=== PATIENT | male | born 1950 | race Two or more races ===

== ENCOUNTER → 2019-03-06 | Outpatient (CLI) | payer MEDICARE ==
--- NOTE | 2019-03-06 10:51 | XR ---
EXAMINATION TYPE: XR chest 2V DATE OF EXAM: 03/06/2019 COMPARISON: NONE HISTORY: Shortness of breath TECHNIQUE: Frontal and lateral views of the chest are obtained. FINDINGS: Scattered senescent parenchymal changes noted. Hyperinflation compatible with COPD. No evidence for infiltrate. No evidence for atelectasis. Heart size is stable. Mediastinal structures are stable and grossly unremarkable. No evidence for hilar prominence. Degenerative changes dorsal spine. IMPRESSION: 1. No evidence for acute pulmonary disease.
[2019-03-06 12:10] LABS: Appearance,Urine Clear (Clear); Bilirubin,Urine Negative (Negative); Blood,Urine Negative (Negative); Color,Urine Light Yellow; Glucose,Urine (UA) Negative (Negative); Ketones,Urine Negative (Negative); Leukocyte Esterase,Urine Negative (Negative); Nitrite,Urine Negative (Negative); PH, Urine 6.5 (5.0-8.0); Protein,Urine Negative (Negative); Urobilinogen,Urine <2.0 mg/dL (<2.0)
[2019-03-06 12:11] LABS: Basophils # (A) 0.1 k/uL (0-0.2); Basophils % (A) 1 %; Eosinophils # (A) 0.1 k/uL (0-0.7); Eosinophils % (A) 2 %; HCT 46.1 % (39.0-53.0); HGB 15.5 gm/dL (13.0-17.5); Lymphocytes # (A) 2.1 k/uL (1.0-4.8); Lymphocytes % (A) 26 %; MCH 31.2 pg (25.0-35.0); MCHC 33.7 g/dL (31.0-37.0); MCV 92.7 fL (80.0-100.0); Mean Platelet Volume 6.6; Monocytes # (A) 0.4 k/uL (0-1.0); Monocytes % (A) 5 %; Neutrophils # (A) 5.3 k/uL (1.3-7.7); Neutrophils % (A) 65 %; Platelet Count 155 k/uL (150-450); RBC 4.97 m/uL (4.30-5.90); RDW 12.6 % (11.5-15.5); WBC 8.1 k/uL (3.8-10.6)
[2019-03-06 12:19] LABS: Calcium 9.7 mg/dL (8.4-10.2); Potassium 4.9 mmol/L (3.5-5.1)
[2019-03-06 12:21] LABS: INR 0.9 (<1.2); Partial Thromboplastin Time 25.9 sec (22.0-30.0); Prothrombin Time 10.2 sec (9.0-12.0)
== END | disposition home or self-care (01) ==
LOC: RADXRMAIN 10:31
PROVIDERS: ATTEND Orthopaedic Surgery Orthopaedic Surgery of the Spine
DX: M48.00 Spinal stenosis, site unspecified (principal); Z01.812 Encounter for preprocedural laboratory examination; Z01.818 Encounter for other preprocedural examination; Z79.01 Long term (current) use of anticoagulants
CPT/HCPCS: 36415; 71046; 80048; 81003; 85025; 85610; 85730; 93005

== ENCOUNTER 2019-03-15 06:39 | Day surgery (SDC) | payer MEDICARE ==
[~2019-03-15 06:39] MED LIST: BACITRACIN 50,000 UNIT, POLYMYXIN B 500,000 UNIT in SODIUM CHLORIDE 0.9% IRRIGATIO 1,00... IRRIGATION ONE
[2019-03-15] MEDS ORDERED: HYDROmorphone 0.5 MG/0.5 ML SYRINGE IVP PRN ×2 (07:06→11:15)
[2019-03-15] MEDS ORDERED: ONDANSETRON 4 MG/2 ML VIAL IVP ONE (07:06)
[2019-03-15] MEDS ORDERED: LIDOCAINE 1% 20 ML VIAL (10MG/ML) FOR IV START INTRADERMA PRN (07:06)
[2019-03-15] MEDS ORDERED: DEXAMETHASONE SOD PHOSPHATE 10 MG/ML 1 ML VIAL IV ONE (07:06)
[2019-03-15] MEDS ORDERED: SCOPOLAMINE 1.5MG/72HR PATCH TRANSDERM ONE (07:06)
[2019-03-15] MEDS ORDERED: MIDAZOLAM 2 MG/2 ML VIAL IV PRN (07:06)
[2019-03-15] MEDS: LACTATED RINGERS 1,000 ML IV SCH ×2 (07:48→23:11)
[2019-03-15] MEDS ORDERED: fentaNYL (PF) 50 MCG/ML 2 ML AMP ONE (07:59)
[2019-03-15] MEDS ORDERED: ePHEDrine SULFATE/0.9% NACL/PF 50 MG/5 ML SYRINGE IV ONE (07:59)
[2019-03-15] MEDS ORDERED: PHENYLEPHRINE-0.9% NACL SYG 1 MG/10 ML SYRINGE ONE (07:59)
[2019-03-15] MEDS ORDERED: MIDAZOLAM 2 MG/2 ML VIAL ONE (07:59)
[2019-03-15] MEDS ORDERED: ROCURONIUM BROMIDE 10 MG/ML 10 ML VIAL IV ONE (07:59)
[2019-03-15] MEDS ORDERED: SUCCINYLCHOLINE CHLORIDE 100 MG/5 ML SYR IV ONE (07:59)
[2019-03-15] MEDS ORDERED: LIDOCAINE 1% INJ 10MG/ML (20 ML MDV) ONE (07:59)
[2019-03-15] MEDS ORDERED: GLYCOPYRROLATE 0.2 MG/ML 2 ML VIAL ONE (07:59)
[2019-03-15] MEDS ORDERED: PROPOFOL 10 MG/ML 20 ML VIAL IV ONE (07:59)
[2019-03-15] MEDS ORDERED: DEXAMETHASONE SOD PHOS (MDV) 100 MG/10 ML VIAL ONE (07:59)
[2019-03-15] MEDS ORDERED: GELATIN SPONGE,ABSORB (SMALL) 1 EACH SPONGE TOPICAL ONE (08:00)
[2019-03-15] MEDS ORDERED: LIDOCAINE 0.5%-EPI 1:200,000 50 ML VIAL SQ ONE (08:00)
[2019-03-15] MEDS ORDERED: THROMBIN (BOVINE) 5,000 UNIT VIAL TOPICAL ONE (08:00)
--- NOTE | 2019-03-15 09:37 | XR ---
EXAMINATION TYPE: XR cervical spine 1V DATE OF EXAM: 03/15/2019 COMPARISON: NONE HISTORY: Needle placement TECHNIQUE: One view submitted FINDINGS: Crosstable lateral demonstrates hypertrophic and degenerative change of the vertebral colum n with posterior spondylosis. Surgical instrument seen overlying the disc space of C4-C5. Endotrachea l tube noted. IMPRESSION: Intraoperative localization
[2019-03-15] MEDS ORDERED: HYDROcodone/APAP 5-325MG 1 EACH TAB PO PRN (11:15)
[2019-03-15] MEDS ORDERED: ONDANSETRON 4 MG/2 ML VIAL IVP PRN (11:15)
[2019-03-15] MEDS ORDERED: BENZOCAINE/MENTHOL LOZENG 1 EACH LOZENGE MUCOUS MEM PRN (11:15)
--- NOTE | 2019-03-15 11:27 | P.OP ---
Date of Procedure: 03/15/19 Preoperative Diagnosis: Severe cervical stenosis, cervical myelopathy, degenerative disc disease, herniated nucleus pulposis C3 4 C4 5 C5 6 and C6 7, facet arthrosis, upper extremity weakness, gait abnormality, cervical radiculopathy Postoperative Diagnosis: Severe cervical stenosis, cervical myelopathy, degenerative disc disease, herniated nucleus pulposis C3 4 C4 5 C5 6 and C6 7, facet arthrosis, upper extremity weakness, gait abnormality, cervical radiculopathy Anesthesia: GETA Pathology: none sent Condition: stable Disposition: PACU Description of Procedure: BRIEF OPERATIVE NOTE Preoperative Diagnosis:Severe cervical stenosis, cervical myelopathy, degenerative disc disease, herniated nucleus pulposis C3 4 C4 5 C5 6 and C6 7, facet arthrosis, upper extremity weakness, gait abnormality, cervical radiculopathy Postoperative Diagnosis:Severe cervical stenosis, cervical myelopathy, degenerative disc disease, herniated nucleus pulposis C3 4 C4 5 C5 6 and C6 7, facet arthrosis, upper extremity weakness, gait abnormality, cervical radiculopathy Procedure: Anterior cervical decompression with discectomy and fusion C3 4 C4 5 C5 6 and C6 7 Placement of interbody graft C3 4 C4 5 C5 6 and C6 7 Application of anterior cervical plate C3 4 5 6 and 7 Surgeon: Dr. Banegas Adjunct Physics Instructor: Isael Pinzon is present throughout the entire the case persistence during positioning, dissection, exposure, visualization, and all crucial elements of the case as well as closure. Anesthesia: General anesthesia Estimated blood loss: Approximately 200 mL Complications: None apparent Components implanted: K2M [place] anterior cervical plate system with screws and Vikos interbody allograft bone graft with 1 mL of DBX bone putty Disposition: To recovery room in good stable condition. OPERATIVE INDICATIONS The patient has had long-standing issues in their neck and upper extremities. He is developing worsening symptoms at his upper extremities and new symptoms into his legs were was having difficulty with his ambulation and his balance. He been having worsening of his strength his upper extremities as well as problems with his dexterity worse on the right than the left. His found have severe cervical stenosis with evidence of cervical myelopathy. He had severe stenosis at C3 4 C4 5 C5 6 and C6 7 all which correlated with his neck and upper extremity symptoms as well as his symptoms myelopathy. He had been through some conservative treatment of the past but was not having any benefit despite aggressive conservative care. The patient has been through conservative treatment. We discussed various treatment options including surgery, and the patient wishes to proceed with surgery We discussed the risk, patient's alternatives and benefits of surgery including but not limited to, risk of bleeding risk of infection, risk of need for further surgery, risk of decreased, loss of motion, muscle function, malunion nonunion, hardware failure, nerve damage, paralysis, heart attack, and . OPERATIVE SUMMARY After discussing all the risks, patient alternatives and benefits at length, the patient elected to proceed with surgical intervention, signed informed consent, and presented for their procedure. The patient was seen and examined in the preoperative holding area and the surgical site was marked. The patient was given antibiotics and brought to the operating room. The patient was positioned on the operating room table in a supine position being careful to pad any bony prominences and pressure points. The patient was sedated and intubated by anesthesia in standard fashion. Once the airway and C- spine were stabilized the patient's arms were padded and tucked at her side, with her shoulders gently taped. The head was placed in a donut pad with the neck in good neutral alignment and position. We were careful to maintain the patient's cervical spine and good neutral alignment and position throughout. The patient was prepped and draped in a normal standard fashion. An appropriate timeout and keystone protocol performed. We were able to proceed with the surgery. The local wound area was infiltrated with local anesthetic. An incision was made longitudinally approximately 3 cm over the appropriate levels from C3 to C7. Dissection was taken down subcutaneously to the level of the platysma which was split in line with its fibers. Dissection was taken with a carotid approach, with the trachea and esophagus medial and the carotid sheath laterally. We dissected down to the anterior surface of the vertebral bodies. Intraoperative x-ray was taken which showed a marker at the appropriate level of C45. With the appropriate level positively confirmed, we were able to proceed with discectomy at the appropriate levels. I started at C3 4 and then C4 5 and then at C5 6 and then at C6 7. All of the operative levels were exposed appropriately. The patient had all their twitches back, and there was no evidence of recurrent laryngeal issue. The wound was copiously irrigated and suctioned dry as had been done periodically throughout the case. At the appropriate level/levels starting cephalad and then moving caudad, I established an annulotomy with an 11 blade scalpel. A discectomy was performed with a combination of pituitary rongeurs, curettes, a high-speed bur, and Kerrison rongeurs. The posterior longitudinal ligament was taken down as were any posterior osteophytes. Note was made of severe disc degeneration as well disc protrusion and herniation and thickening of the posterior longitudinal ligament posterior osteophytes. These were all taken down through the course of the decompression and discectomy. This gave good central and bilateral foraminal decompression. There is no evidence of any dural tear or leak. I had to take down a portion of the bone at each level was able to maintain stability with some of the vertebral body. The endplates were prepared with a high-speed bur. With the endplates in good parallel position, I was able to size for the appropriate size interbody graft. The wound was irrigated and suctioned dry the graft was prepared and malleted into position. It had good alignment and position with the anterior surface flush with the anterior surface of the vertebral bodies. This was done similarly the appropriate levels first at C3 4 and then C4 5 and C5 6 and then C6 7. With the grafts intact, I was able to measure and contour and appropriate sized plate. The plate was positioned at the midline over the appropriate levels from C3 to C7. Screw holes were established with a hand drill and drill guide. Screws were placed in good alignment and position with excellent bony purchase. They were seated under the locking device. The construct was checked and found to be stable. Intraoperative x-ray was taken which showed good alignment and position of the implants at the appropriate levels from C3 to C7. There was no evidence of any dural tear or leak. Good hemostasis was maintained. The wound was copiously irrigated and suctioned dry as had been done periodically throughout the case. The platysma was closed with absorbable suture. The subcutaneous tissue was closed. The subcuticular tissue was closed with absorbable suture. The wound was cleaned and dried and dressed appropriately. A soft cervical collar was placed appropriately. The patient was woken up by anesthesia, extubated, transferred back gently to their hospital bed and brought to the recovery room in good stable condition. The patient will be admitted to the hospital for appropriate postoperative care, medical management and monitoring. We will continue to follow them closely about the postoperative course.
[2019-03-15] MEDS: SODIUM CHLORIDE 0.9% 1,000 ML IV SCH ×2 (14:57→23:05)
[2019-03-15 15:10] VITALS: BMI 24.1
[2019-03-15] MEDS: ACETAMINOPHEN TAB 325 MG TAB PO PRN ×2 (17:23→23:08)
[2019-03-15] MEDS: SYMBICORT 80-4.5 MCG INHALER INHALATION SCH (19:51)
[2019-03-15] MEDS ORDERED: TAMSULOSIN 0.4 MG CAP.ER.24H PO SCH (21:00)
[2019-03-16] MEDS: ACETAMINOPHEN TAB 325 MG TAB PO PRN (05:31)
[2019-03-16 06:48] VITALS: BP 126/86; PULSE 96; RESP 17; TEMP 98
[2019-03-16] MEDS: SYMBICORT 80-4.5 MCG INHALER INHALATION SCH (07:51)
--- NOTE | 2019-03-16 08:34 | P.DS ---
Providers Date of admission: 03/15/19 Attending physician: Vel Banegas Primary care physician: [facility] Course: The patient presented on the day of admission as per their operative note. He had severe cervical stenosis with disc herniation and cervical myelopathy at multiple levels. He does have a history of coronary artery disease as well as hypertension and dyslipidemia for which he has treatment. The patient underwent anterior cervical decompression with discectomy and fusion at C3 4 C4 5 C5 6 and C6 7 for his stenosis with myelopathy and radiculopathy and upper extremity weakness. He feels his extremities have made improvement since his surgery. He thinks that he may be having some improved sensation at his upper extremity is already since his surgery. He denies any nausea or vomiting. He is tolerating his soft diet. His pain is well-controlled. He is not having any trouble breathing. Physical Exam The incision site is clean dry and intact. There is no erythema no drainage. There is no purulence no evidence of infection. His neck is soft and supple. There is no significant swelling. There is no erythema or drainage. Abdomen soft and nontender. Chest has good excursion with deep inspiration and expiration. The patient has active and passive range of motion intact at the upper and lower extremities. There is no acute change in neurologic status. He has good motion throughout his extremities but has some diffuse weakness at his extremities which is unchanged from prior to surgery Hospital Course Postoperative day #1 status post anterior cervical decompression with discectomy at C3 4 C4 5 C5 6 and C6 7 for his cervical myelopathy with severe stenosis and upper extremity weakness. The patient has been making good progress postoperatively. They have completed the prophylactic antibiotics without any signs or symptoms of infection. The patient has been able to advance their diet, and is tolerating diet adequately. The pain was initially controlled with IV medications and is now controlled appropriately with oral medications. He has only been taking Tylenol through the night to help with his pain. The patient has been able to increase their mobilization. The patient has progressed appropriately. I think they are in good stable condition for discharge today. They will be sent home with appropriate prescriptions. I answered their questions to the best of my ability in a language that they can understand and they are agreeable with the plan. They will follow up as directed in approximately 2 weeks or sooner if he is having problems. Patient Condition at Discharge: Good Plan - Discharge Summary Discharge Rx Participant: Yes New Discharge Prescriptions: New HYDROcodone/APAP 5-325MG [[place] 5] 1 each PO Q4HR PRN #42 tab PRN Reason: Pain No Action Cholecalciferol [Vitamin D3 (25 Mcg = 1000 Iu)] 1,000 unit PO DAILY Tamsulosin [Flomax] 0.4 mg PO HS Metoprolol Succinate [Toprol XL] 25 mg PO DAILY Lisinopril [Zestril] 20 mg PO DAILY Fluticasone/Salmeterol [Advair 250-50 Diskus] 1 inhalation PO BID Atorvastatin [Lipitor] 20 mg PO DAILY [place] 500 mg PO DAILY Prasterone (Dhea) [Dhea] 50 mg PO DAILY Cyanocobalamin (Vitamin B-12) [Vitamin B-12] 1,000 mcg PO DAILY Aspirin [Adult Low Dose Aspirin EC] 81 mg PO DAILY Discharge Medication List Aspirin [Adult Low Dose Aspirin EC] 81 mg PO DAILY 03/13/19 [History] Atorvastatin [Lipitor] 20 mg PO DAILY 03/13/19 [History] Cholecalciferol [Vitamin D3 (25 Mcg = 1000 Iu)] 1,000 unit PO DAILY 03/13/19 [History] Cyanocobalamin (Vitamin B-12) [Vitamin B-12] 1,000 mcg PO DAILY 03/13/19 [History] Fluticasone/Salmeterol [Advair 250-50 Diskus] 1 inhalation PO BID 03/13/19 [History] Lisinopril [Zestril] 20 mg PO DAILY 03/13/19 [History] Metoprolol Succinate [Toprol XL] 25 mg PO DAILY 03/13/19 [History] Prasterone (Dhea) [Dhea] 50 mg PO DAILY 03/13/19 [History] [place] 500 mg PO DAILY 03/13/19 [History] Tamsulosin [Flomax] 0.4 mg PO HS 03/13/19 [History] HYDROcodone/APAP 5-325MG [[place] 5] 1 each PO Q4HR PRN #42 tab 03/15/19 [Rx] Follow up Appointment(s)/Referral(s): Vel Banegas DO [Doctor of Osteopathic Medicine] - 2 Weeks Activity/Diet/Wound Care/Special Instructions: Keep site clean. May shower with waterproof Tegaderm intact. Do not soak in a tub. After 72 hours postoperatively, patient May remove dressing and then may shower with area uncovered. Leave Steri-Strips intact and allow them to fray off on their own. May ambulate as tolerated. Avoid heavy or rigorous activity. No repetitive bending twisting or lifting. No overhead work. May apply ice to the area for 30 minutes at a time 4 times a day as needed Discharge Disposition: HOME SELF-CARE
[2019-03-16] MEDS ORDERED: ATORVASTATIN 20 MG TAB PO SCH (09:00)
[2019-03-16] MEDS ORDERED: CYANOCOBALAMIN 500 MCG TAB PO SCH (09:00)
[2019-03-16] MEDS ORDERED: METOPROLOL SUCCINATE (ER) 25 MG TAB.ER.24H PO SCH (09:00)
[2019-03-16] MEDS ORDERED: SAW PALMETTO 500 MG PO SCH (09:00)
[2019-03-16] MEDS ORDERED: LISINOPRIL 20 MG TAB PO SCH (09:00)
[2019-03-16] MEDS ORDERED: SENNOSIDES-DOCUSATE SODIUM 1 EACH TAB PO SCH (09:00)
[2019-03-16] MEDS ORDERED: ASPIRIN 81 MG PO SCH (09:00)
[2019-03-16] MEDS ORDERED: PRASTERONE 50 MG PO SCH (09:00)
[2019-03-16] MEDS ORDERED: CHOLECALCIFEROL 1,000 UNIT TAB PO SCH (09:00)
--- NOTE | 2019-03-16 11:37 | XR ---
Cervical spine HISTORY: Anterior cervical fusion and discectomy Single lateral cervical spine correlated to prior exam and same dated earlier time Patient is status post anterior cervical fusion and discectomy at C3 [id number]. C7 is not well seen. Inter vertebral spacing blocks have been placed. There is anatomic alignment. Endotracheal tube is in place . There are overlying leads. IMPRESSION: Orthopedic follow-up.
== END 2019-03-16 09:35 | disposition home or self-care (01) ==
LOC: OR 06:39 → 4SSUR 11:07 → OR 03-16 09:35
PROVIDERS: ATTEND Orthopaedic Surgery Orthopaedic Surgery of the Spine
DX: M50.11 Cervical disc disorder with radiculopathy, high cervical region (principal); M47.12 Other spondylosis with myelopathy, cervical region; M47.22 Other spondylosis with radiculopathy, cervical region; M50.01 Cervical disc disorder with myelopathy, high cervical region; M48.02 Spinal stenosis, cervical region; E78.5 Hyperlipidemia, unspecified; J44.9 Chronic obstructive pulmonary disease, unspecified; N40.0 Benign prostatic hyperplasia without lower urinary tract symptoms; K21.9 Gastro-esophageal reflux disease without esophagitis; Z88.0 Allergy status to penicillin; Z79.82 Long term (current) use of aspirin; Z79.899 Other long term (current) drug therapy; Z79.51 Long term (current) use of inhaled steroids; Z90.89 Acquired absence of other organs; Z98.890 Other specified postprocedural states; I25.10 Atherosclerotic heart disease of native coronary artery without angina pectoris; I12.9 Hypertensive chronic kidney disease with stage 1 through stage 4 chronic kidney disease, or unspecified chronic kidney disease; N18.2 Chronic kidney disease, stage 2 (mild); Z80.3 Family history of malignant neoplasm of breast; Z82.49 Family history of ischemic heart disease and other diseases of the circulatory system; Z80.1 Family history of malignant neoplasm of trachea, bronchus and lung; Z87.891 Personal history of nicotine dependence; Z97.3 Presence of spectacles and contact lenses; M41.86 Other forms of scoliosis, lumbar region; M43.12 Spondylolisthesis, cervical region; M48.062 Spinal stenosis, lumbar region with neurogenic claudication; M51.37 Other intervertebral disc degeneration, lumbosacral region
CPT/HCPCS: 22551; 22552 ×3; 20931; 22853 ×4; 94640 ×2; 86900; 86901; 86850; 72020; C1713 ×2; C1762 ×3; J2250; J0690; J2405; J2001; J3010; J1100; J2370; J0330; J2704